=== PATIENT | female | born 1990 | race African-American/Black ===

== ENCOUNTER 2019-02-08 02:53 | Observation (INO) | payer OTHER | END 2019-02-08 03:38 | disposition left against medical advice (07) | LOC: 8 EST LDRP 02:53 | PROVIDERS: ADMIT Obstetrics & Gynecology; ATTEND Obstetrics & Gynecology | DX: O62.9 Abnormality of forces of labor, unspecified (principal); Z3A.38 38 weeks gestation of pregnancy | CPT/HCPCS: 99281; G0378 ==